=== PATIENT | female | born 1955 | race Caucasian/White ===

== ENCOUNTER 2016-08-11 20:01 | Emergency (ER) | payer OTHER ==
[~2016-08-11] VITALS: Ht 162.6 cm; Wt 82.2 kg
[~2016-08-11 20:01] MED LIST: ABIL5TAB6 PO; DIOV320T PO; LACTCAP7 PO; LEXA10TA PO; METF500 PO; REST30CA PO; SYNT50TA PO
[2016-08-11 20:10] VITALS: BP 162/86; PULSE 110; RESP 16; TEMP 100.4; O2SAT 97
[2016-08-11] MEDS ORDERED: IBUPROFEN 600 MG TAB PO ONE (20:30)
[2016-08-11] MEDS ORDERED: SODIUM CHLOR 0.9% 1000 ML INJ 1,000 ML IV SCH (20:30)
[2016-08-11] MEDS ORDERED: ACETAMINOPHEN 500 MG CPLT PO ONE (20:30)
[2016-08-11] MEDS ORDERED: VALS1TAB70 PO (20:31)
[2016-08-11] MEDS ORDERED: METF1000 PO (20:31)
[2016-08-11] MEDS ORDERED: LEVO.05 PO (20:31)
[2016-08-11] MEDS ORDERED: ROSU1TAB4 PO (20:31)
[2016-08-11] MEDS ORDERED: ESCI10TA PO (20:31)
--- NOTE | 2016-08-11 20:31 | PD ---
HPI Chief Complaint: Cold / Flu Symptoms Time Seen by Provider: 20:14 Travel History International Travel<30 days: No Contact w/Intl Traveler<30days: No Traveled to known affect area: No History of Present Illness HPI This 61-year-old female says she's been sick for a day. She's been having fever and cough. She's had been having diarrhea off and on for some time. She has a history of gastric bypass. She has had a left knee replacement cholecystectomy. She has history of sleep apnea and pneumonia. She is diabetic on metformin. She has noted some achiness all over. She has had swelling of her feet. She has been at [facility] the last few days and has been on her feet more than usual. She has a history of depression. She says that recently she has been a bit anemic. She has history of sinus sinusitis and has some pain in her face PFSH Past Medical History Arthritis: Yes Asthma: Yes Blood Disorders: No Anxiety: Yes Depression: Yes Cancer: No Cardiovascular Problems: Yes High Cholesterol: Yes Diabetes: Yes Patient Takes Glucophage: No Diminished Hearing: No Endocrine: Yes Gastrointestinal Disorders: Yes (DIARRHEA ) GERD: Yes Genitourinary: Yes Hepatitis: No Hiatal Hernia: No Hypertension: Yes Immune Disorder: No Implanted Vascular Access Dvce: Yes Musculoskeletal: Yes Neurologic: No Psychiatric: No Reproductive: No Respiratory: Yes Sleep Apnea: Yes (HX PRIOR TO BYPASS SURGERY, USE TO USE CPAP-NO MORE) Thyroid Disease: Yes Influenza Vaccination: Yes ?: Not Menopausal: Yes : 1 Para: 1 Past Surgical History Abdominal Surgery: Yes (GALL BLADDER, GASTRIC BYPASS, UMBILICAL HERNIA) Body Medical Devices: METAL WIRE BEHIND TEETH POST ORTHODONTIA Gynecologic Surgery: Yes (D&C X2) Joint Replacement: Yes (R KNEE) Pacemaker: No Social History Alcohol Use: No Tobacco Use: No Substance Use: No Allergies-Medications (Allergen,Severity, Reaction): Coded Allergies: Sulfa (Verified Allergy, Severe, 08/11/16) [place] (Unverified Adverse Reaction, Severe, 08/11/16) Codeine (Verified Adverse Reaction, Intermediate, NAUSEA/VOMITING, 08/11/16) Uncoded Allergies: RAW TOMATOES (Adverse Reaction, Severe, 02/10/14) Reported Meds & Prescriptions Reported Meds & Active Scripts Active Reported Metformin (Metformin HCl) 1,000 Mg Tab 1,000 Mg PO BIDPC With meals Escitalopram (Escitalopram Oxalate) 10 Mg Tab 10 Mg PO DAILY Rosuvastatin (Rosuvastatin Calcium) 5 Mg Tab 5 Mg PO DAILY Valsartan 320 Mg Tab 320 Mg PO DAILY Synthroid (Levothyroxine Sodium) 50 Mcg Tab 50 Mcg PO DAILY Review of Systems General / Constitutional: Positive: Fever, Chills Eyes: No: Diploplia, Blurred Vision HENT: No: Headaches, Vertigo Cardiovascular: No: Chest Pain or Discomfort, Palpitations Respiratory: Positive: Cough Gastrointestinal: Positive: Nausea, No: Vomiting Genitourinary: No: Urgency, Frequency Musculoskeletal: Positive: Myalgias Skin: No Rash Neurologic: No: Weakness, Dizziness Psychiatric: No: Suicidal Ideations Endocrine: No: Heat Intolerance, Cold Intolerance Hematologic/Lymphatic: No: Easy Bruising Physical Exam Narrative GENERAL: Well-developed female SKIN: Focused skin assessment warm/dry. HEAD: Atraumatic. Normocephalic. EYES: Pupils equal and round. No scleral icterus. No injection or drainage. ENT: No nasal bleeding or discharge. Mucous membranes pink and moist. She is tender over both maxillary sinuses NECK: Trachea midline. No JVD. CARDIOVASCULAR: Regular rate and rhythm. No murmur appreciated. RESPIRATORY: No accessory muscle use. Occasional rhonchi Breath sounds equal bilaterally. GASTROINTESTINAL: Abdomen soft, non-tender, nondistended. Hepatic and splenic margins not palpable. MUSCULOSKELETAL: No obvious deformities. No clubbing. No cyanosis. No edema. NEUROLOGICAL: Awake and alert. No obvious cranial nerve deficits. Motor grossly within normal limits. Normal speech. PSYCHIATRIC: Appropriate mood and affect; insight and judgment normal. Data Data Last Documented VS Vital Signs Date Time Temp Pulse Resp B/P Pulse Ox O2 Delivery O2 Flow Rate FiO2 08/11/16 22:06 89 18 160/68 95 Room Air 08/11/16 20:10 100.4 Orders Complete Blood Count With Diff (08/11/16 20:27) Comprehensive Metabolic Panel (08/11/16 20:27) Lactic Acid Sepsis Protocol (08/11/16 20:27) Urinalysis - C+S If Indicated (08/11/16 20:27) Influenzae A/B Antigen (08/11/16 20:27) Blood Culture (08/11/16 20:27) Chest, Pa & Lat (08/11/16 20:27) Blood Glucose (08/11/16 20:27) Iv Access Insert/Monitor (08/11/16 20:27) Oximetry (08/11/16 20:27) Ibuprofen (Motrin) (08/11/16 20:30) Acetaminophen (Tylenol) (08/11/16 20:30) Sodium Chlor 0.9% 1000 Ml Inj (Ns 1000 M (08/11/16 20:30) B-Type Natriuretic Peptide (08/11/16 20:31) Labs Laboratory Tests Test 08/11/16 08/11/16 21:00 21:05 White Blood Count 9.5 TH/MM3 Red Blood Count 3.66 MIL/MM3 Hemoglobin 9.4 GM/DL Hematocrit 28.9 % Mean Corpuscular Volume 79.1 FL Mean Corpuscular Hemoglobin 25.8 PG Mean Corpuscular Hemoglobin 32.7 % Concent Red Cell Distribution Width 16.3 % Platelet Count 263 TH/MM3 Mean Platelet Volume 8.3 FL Neutrophils (%) (Auto) 79.7 % Lymphocytes (%) (Auto) 8.5 % Monocytes (%) (Auto) 9.6 % Eosinophils (%) (Auto) 0.7 % Basophils (%) (Auto) 1.5 % Neutrophils # (Auto) 7.6 TH/MM3 Lymphocytes # (Auto) 0.8 TH/MM3 Monocytes # (Auto) 0.9 TH/MM3 Eosinophils # (Auto) 0.1 TH/MM3 Basophils # (Auto) 0.1 TH/MM3 CBC Comment DIFF FINAL Differential Comment Sodium Level 138 MEQ/L Potassium Level 3.5 MEQ/L Chloride Level 102 MEQ/L Carbon Dioxide Level 25.3 MEQ/L Anion Gap 11 MEQ/L Blood Urea Nitrogen 10 MG/DL Creatinine 0.56 MG/DL Estimat Glomerular Filtration 109 ML/MIN Rate Random Glucose 165 MG/DL Calcium Level 8.5 MG/DL Total Bilirubin 0.4 MG/DL Aspartate Amino Transf 30 U/L (AST/SGOT) Alanine Aminotransferase 35 U/L (ALT/SGPT) Alkaline Phosphatase 78 U/L B-Type Natriuretic Peptide 165 PG/ML Total Protein 6.9 GM/DL Albumin 3.7 GM/DL Lactic Acid Level 1.1 mmol/L [facility] Medical Decision Making Medical Screen Exam Complete: Yes Emergency Medical Condition: Yes Medical Record Reviewed: Yes Differential Diagnosis Differential includes pneumonia, sinusitis, pharyngitis, influenza Narrative Course Test for flu is negative. Chest x-ray negative for pneumonia. She will be treated for sinusitis Diagnosis Primary Impression: Sinusitis Qualified Code: J01.00 - Acute maxillary sinusitis, recurrence not specified Scripts Amoxicillin 500 Mg Qot159 Mg PO TID #30 TAB Ref 0 Prov:Andrew Neal MD 08/11/16 Disposition: 01 DISCHARGE HOME Condition: Stable Andrew Neal MD August 11, 2016 20:31
--- NOTE | 2016-08-11 20:57 | RADHPO ---
EXAM DATE/TIME: 08/11/2016 20:43 [facility] COMPARISON: No previous studies available for comparison. INDICATIONS : Cough. MEDICAL HISTORY : None. SURGICAL HISTORY : None. ENCOUNTER: Initial ACUITY: 2 days PAIN SCORE: 4/10 LOCATION: Bilateral chest FINDINGS: PA and lateral views of the chest demonstrate the lungs to be symmetrically aerated without evidence of mass, infiltrate or effusion. The cardiomediastinal contours are unremarkable. Osseous structure s are intact. CONCLUSION: No evidence of acute cardiopulmonary disease. Eliu Edwards MD on August 11, 2016 at 20:55 Board Certified Radiologist. This report was verified electronically.
[2016-08-11 21:00] VITALS: BP 170/72; PULSE 98; RESP 18; O2SAT 95; O2SAT 96
[2016-08-11 21:23] LABS: AUTOMATED NEUTROPHIL # 7.6 TH/MM3 (1.8-7.7); BASOPHIL # 0.1 TH/MM3 (0-0.2); BASOPHIL % 1.5 % (0.0-2.0); EOSINOPHIL # 0.1 TH/MM3 (0-0.4); EOSINOPHIL % 0.7 % (0.0-4.0); HEMATOCRIT 28.9 % (35.0-46.0); LYMPH % 8.5 % (9.0-44.0); LYMPHOCYTE # 0.8 TH/MM3 (1.0-4.8); MEAN CELL VOLUME 79.1 FL (80.0-100.0); MEAN CORPUSCULAR HEMOGLOBIN 25.8 PG (27.0-34.0); MEAN CORPUSCULAR HGB CONC 32.7 % (32.0-36.0); MONO % 9.6 % (0.0-8.0); NEUT % 79.7 % (16.0-70.0); PLATELET COUNT 263 TH/MM3 (150-450); RED BLOOD COUNT 3.66 MIL/MM3 (4.00-5.30); RED CELL DISTRIBUTION WIDTH 16.3 % (11.6-17.2); WHITE BLOOD COUNT 9.5 TH/MM3 (4.0-11.0)
[2016-08-11 21:26] LABS: HEMO FLAGS DIFF FINAL
[2016-08-11 21:34] LABS: CHLORIDE 102 MEQ/L (98-107); POTASSIUM 3.5 MEQ/L (3.5-5.1); SODIUM (NA) 138 MEQ/L (136-145)
[2016-08-11 21:38] LABS: ANION GAP 11 MEQ/L (5-15); BICARBONATE 25.3 MEQ/L (21.0-32.0); BLOOD UREA NITROGEN 10 MG/DL (7-18)
[2016-08-11 21:41] LABS: ALT (GPT) 35 U/L (10-53); AST (GOT) 30 U/L (15-37); GLOMERULAR FILTRATION RATE 109 ML/MIN (>89)
[2016-08-11 21:42] LABS: TOTAL BILIRUBIN ADULT 0.4 MG/DL (0.2-1.0)
[2016-08-11 21:44] LABS: ALKALINE PHOSPHATASE 78 U/L (45-117)
[2016-08-11 22:06] VITALS: BP 160/68; PULSE 89; RESP 18; O2SAT 95
[2016-08-11] MEDS ORDERED: AMOX500T PO (22:37)
[2016-08-11 22:45] VITALS: RESP 18
[2016-08-11] MEDS ORDERED: AMOXICILLIN (TRIHYDRATE) 500 MG CAP PO ONE (22:45)
== END 2016-08-11 23:02 | disposition home or self-care (01) ==
LOC: PHED 20:01
DX: J32.9 Chronic sinusitis, unspecified (principal); R05 Cough; G47.30 Sleep apnea, unspecified; E11.9 Type 2 diabetes mellitus without complications; J45.909 Unspecified asthma, uncomplicated; E78.00 Pure hypercholesterolemia, unspecified; I10 Essential (primary) hypertension; K21.9 Gastro-esophageal reflux disease without esophagitis; Z79.84 Long term (current) use of oral hypoglycemic drugs
CPT/HCPCS: 71020; 80053; 83605; 83880; 85025; 87040; 87804; 96360; 99284; J7030

== ENCOUNTER → 2017-02-23 | Outpatient (CLI) | payer OTHER ==
[~2017-02-23] MED LIST changes: -ABIL5TAB6 PO; +AMOX500T PO; -DIOV320T PO; +ECASA81 PO; +ESCI10TA PO; +HYDR-3580 PO; -LACTCAP7 PO; +LEVO.05 PO; -LEXA10TA PO; +METF1000 PO; -METF500 PO; -REST30CA PO; +ROSU1TAB4 PO; -SYNT50TA PO; +VALS1TAB70 PO
[2017-02-23 10:19] LABS: BLOOD, URINE TRACE (NEG); GLUCOSE,URINE NEG (NEG); KETONE, URINE NEG (NEG); NITRITE,URINE NEG (NEG); URINE COLOR LIGHT-YELLOW (YELLW/STRAW)
[2017-02-23 10:31] LABS: WBC, URINE 0-2 /hpf (0-5)
[2017-02-23 10:32] LABS: BACTERIA, URINE RARE /hpf; COMMENT (UR) CATH-CULTURE IND; CULTURE IF INDICATED CATH CULTURE IND
--- NOTE | 2017-02-23 16:25 | EKG ---
Date Performed: 02/23/2017 Time Performed: 08:32:10 PTAGE: 61 years EKG: Sinus rhythm NORMAL ECG Since PREVIOUS TRACING , no significant change noted PREVIOUS TRACING 02/09/2014 22.19 DOCTOR: Amilcar Hankins Interpretating Date/Time 02/23/2017 16:23:49
== END ==
LOC: CPRE 08:08
PROVIDERS: ATTEND Orthopaedic Surgery
DX: Z01.812 Encounter for preprocedural laboratory examination (principal); Z01.810 Encounter for preprocedural cardiovascular examination; M17.11 Unilateral primary osteoarthritis, right knee; M79.609 Pain in unspecified limb; I10 Essential (primary) hypertension; R82.99 Other abnormal findings in urine
CPT/HCPCS: 81001; 87086; 93005

== ENCOUNTER 2017-03-05 05:05 | Inpatient (IN) | payer OTHER ==
[~2017-03-05] VITALS: Ht 162.6 cm; Wt 77.9 kg
[~2017-03-05 05:05] MED LIST changes: -AMOX500T PO; -ECASA81 PO; -HYDR-3580 PO
[2017-03-05] MEDS ORDERED: EXPAREL PERI-ARTICULAR INJECTION (TOTAL VOL. 100 ML) P-ARTICULR SCH ×2 (05:45)
[2017-03-05] MEDS ORDERED: ceFAZolin 2 GM PREMIX 50 ML IV SCH (05:45)
[2017-03-05] MEDS ORDERED: CHLORHEXIDINE GLUCONATE 4% SOLN 120 ML BTL TOPICAL SCH (05:45)
[2017-03-05] MEDS ORDERED: SODIUM CHLORID 0.9% 500 ML IV PRN (05:45)
[2017-03-05] MEDS ORDERED: TRANEXAMIC ACID INJ 780 MG in SODIUM CHLORIDE 0.9% INJ 100 ML IV SCH ×4 (05:45)
[2017-03-05] MEDS ORDERED: CHLORHEXIDINE GLUCONATE 2 % 1 PACK (2 CLOTHS) TOPICAL PRN (05:45)
[2017-03-05] MEDS ORDERED: LACTATED RINGER'S 1000 ML IV PRN (05:45)
[2017-03-05] MEDS ORDERED: INSULIN HUMAN REGULAR 1,000 UNITS/10 ML VIAL SQ PRN (05:45)
[2017-03-05] MEDS ORDERED: POVIDONE IODINE 5% (ANTISEPSIS KIT) 4 APPLICATIONS EACH NARE PRN (05:45)
[2017-03-05] MEDS ORDERED: METOPROLOL TARTRATE 25 MG TAB PO PRN (05:45)
[2017-03-05] MEDS ORDERED: GENTAMICIN SULFATE 80 MG/2 ML VIAL ONE (06:01)
[2017-03-05] MEDS ORDERED: ZOLPIDEM TARTRATE 5 MG TAB PO PRN (06:45)
[2017-03-05] MEDS ORDERED: SODIUM CHLORIDE 0.9% FLUSH 5 ML FLUSH IVF PRN (06:45)
[2017-03-05] MEDS ORDERED: ONDANSETRON HCL 4 MG/2 ML VIAL IVP PRN (06:45)
[2017-03-05] MEDS ORDERED: MAGNESIUM HYDROXIDE SUSP 30 ML CUP PO PRN (06:45)
[2017-03-05] MEDS ORDERED: ACETAMINOPHEN/HYDROcodone 325 MG/7.5 MG TAB PO PRN (06:45)
[2017-03-05] MEDS ORDERED: MORPHINE SULFATE 4 MG/ML INJ IV PUSH PRN (06:45)
--- NOTE | 2017-03-05 06:47 | HHI.FF ---
Face to Face Verification Diagnosis: (1) Status post total right knee replacement Physical Therapy Gait training Knee: Total knee, Protocol: Right, Gait training, Full weight bearing Right LE Weight Bearing: WB as tolerated Right LE Range of Motion: Active ROM (AROM, AAROM, PROM. ROM goal is 0 to 135 degrees at least. ROM in the OR was 0 to 145 degrees.) Nursing Nursing: Dressing changes Dressing Changes: Daily dressing change (Dressing changes start at postop day 7.), Coverderm/Primapore Additional Instructions Remove steristrips on postop day 14. I have seen patient Natalie Baez on 03/05/17. My clinical findings support the need for the requested home health care services because: Ltd mobility - disease progression Limited ability to care for self High risk of falls I certify that my clinical findings support that this patient is homebound because: Post-op weakness Unsteady gait/balance Unsafe to leave home unassisted Adrianne Restrepo MD (Charles) Mar 05, 2017 06:47
[2017-03-05] MEDS ORDERED: ECASA81 PO (06:48)
[2017-03-05] MEDS ORDERED: ROPIVACAINE 0.5% PF INJ 30 ML VIAL ONE (06:56)
[2017-03-05] MEDS ORDERED: DEXAMETHASONE SOD PHOS 4 MG/ML VIAL ONE (06:56)
[2017-03-05] MEDS ORDERED: PROPOFOL 500 MG/50 ML INJ 50 ML ONE (07:47)
[2017-03-05] MEDS: LACTATED RINGER'S 1000 ML INJ 1,000 ML IV SCH ×2 (08:30→19:33)
[2017-03-05] MEDS ORDERED: Post-op Orders (for Pharmacy) MISC XX ONE (09:00)
[2017-03-05] MEDS: metFORMIN HCL 500 MG TAB PO SCH ×2 (09:00→17:58)
--- NOTE | 2017-03-05 09:13 | HHI.PR ---
Immediate Post Op Note Procedure Date: Mar 05, 2017 Pre Op Diagnosis: (1) Primary osteoarthritis of right knee Post Op Diagnosis: (1) Primary osteoarthritis of right knee Surgeon: Saurabh Restrepo MD Senior Strategy Manager(s): JENNIFER Asif Procedure: Right total knee arthroplasty with [place] Triathlon prosthesis, uncemented Findings: OA knee Complications: 0 Specimen(s) removed: 0 Estimated blood loss: 250 ml Anesthesia: Regional Block (adductor canal), Spinal, Local (Exparel) Drains: Hemovac (2) IVF Tourniquet time (min at mmHg) 0 Patient to: PACU Patient Condition: Good Implant/Devices: SEE IMPLANT LOG (if applicable) Date/Time of Procedure: SEE SURGICAL CARE RECORD Adrianne Restrepo MD (Charles) Mar 05, 2017 09:13
--- NOTE | 2017-03-05 09:57 | MP ---
cc: Foreign GOMEZ. DATE OF SURGERY 03/05/2017 PREOPERATIVE DIAGNOSIS Primary osteoarthritis right knee POSTOPERATIVE DIAGNOSIS Primary osteoarthritis right knee OPERATION PERFORMED Right total knee arthroplasty with [place] Triathlon prosthesis (uncemented). SURGEON Karla Gomez MD RATING EXAMINER JENNIFER Asif ANESTHESIA Spinal with supplemental adductor canal block regional and local with Exparel INDICATIONS AND FINDINGS This 61-year-old woman has had longstanding pain in her right knee secondary to osteoarthritis which has been progressively worsening. Her ambulation tolerance is significantly limited. She has pain on motion with crepitation on motion and pain with activities of daily living. She has not responded to conservative measures as detailed in the history and physical examination. Physical findings showed palpable osteophytes with genu varum, medial laxity and crepitation on motion with an effusion. The radiographic findings shows severe osteoarthritis with loss of articular cartilage to [id number], osteophytes that were tricompartmental in nature. Operative findings were consistent with radiographic findings with there being loss of articular cartilage to [id number] in the medial compartment, similar loss, but to a lesser extent in the patellofemoral compartment and large areas of delaminating articular cartilage in the lateral femoral condyle. The prosthesis used was a [place] Triathlon prosthesis. The femoral component was a porous coated prosthesis size 4 cruciate-retaining. The tibial components is a Tritanium baseplate size 4 with a 9 mm cruciate-retaining spacer of X3 polyethylene. The patella was a Tritanium backed asymmetric patella size 35 mm. PROCEDURE The patient was brought to the operating room and a spinal anesthetic was administered followed by an adductor canal block. She was placed in a supine position on the operating room table with a small bolster under the right hip. A pneumatic tourniquet was applied to the right thigh. The limb was then prepped with alcohol, Hibiclens and Chloraprep and draped in the usual manner with the knee draped free. An appropriate time-out procedure was carried out. The patient did receive prophylactic antibiotics in the form of Ancef according to protocol as well as tranexamic acid to help with intraoperative bleeding. Local anesthetic was administered in the incision site. The incision was then made from about two fingerbreadths above the superior medial pole of the patella down to the tibial tubercle on the medial side. The incision was deepened through the subcutaneous tissues to the retinacular structures which were exposed medially and laterally. A medial retinacular incision was then made from the superior medial pole of the patella down to the tibial tubercle and was in the quadriceps tendon splitting it longitudinally in the medial one-third. The patella was reflected. The infrapatellar fat pad was debulked. Throughout the procedure, hemostasis was achieved with electrocautery. The posterior surface of the patella was excised with the oscillating saw taking care to prevent injury to ligamentous and tendinous structures. A patella protector was applied to the posterior surface. The patella was flipped into the lateral gutter. Fenestrations were made in the distal end of the femur and proximal end of the tibia with the drill. The distal femoral cutting guide was then positioned in place for a 5 degrees 8-mm cut. The cutting block was stabilized with pins. The jig was removed. The distal femoral cut was completed with the oscillating saw. The sizing guide was then positioned in place using white sides line in the epicondylar axis. The size was determined to be a size 4. The four in one cutting block was positioned in place and stabilized with pins. The anterior and posterior cuts were made followed by the posterior and anterior chamfer cuts. Osteophytes were trimmed. The fenestration in the femur was plugged with a bone plug. The proximal tibial cutting guide and jig were then assembled and positioned appropriately for rotation. This was stabilized with a pin. The depth of cut was verified with the stylus off the high side. The cutting block was stabilized with pins. The jig was removed. The depth of cut was verified with the spacer block. The secondary pin was placed. The proximal tibial cut was then completed with the oscillating saw taking care to prevent injury to neurovascular and ligamentous structures. The size of the tibia was determined to be a size 4. A bone plug was then placed into the distal end of the proximal tibia. The local anesthesia was administered around the cut surfaces and posterior capsule. Following this, the trial prosthesis was inserted for the size as noted above. The patella drill guide was positioned prior to placing the patella with drill holes made. When the patella trial was positioned in place, the knee was taken through a range of motion. Range of motion was easily 0 degrees extension to 145 degrees of flexion with excellent stability throughout the entire range. The femoral drill holes were made through the trial prosthesis. The femoral and patella trials were removed. The tibial spacer trials were removed. A bone plug was placed into the proximal tibia. The tibia was punched with the proximal tibial punch. This was then removed. The baseplate trial was removed. The tibial drill guide was positioned in place. Drill holes were made. The cut ends of bone were then cleaned with pulse lavage. The tibial baseplate was impacted into place and seated appropriately. The spacer was inserted. The femoral component was impacted into place and seated appropriately. The patella prosthesis was seated in place appropriately and held with a patella vice. A small amount of bleeding was identified coming out of the fenestration in the distal femur. This was plugged with bone wax. The remainder of the Exparel was injected throughout the knee according to protocol. Drains were brought out the superolateral aspect of the suprapatellar pouch. Wound closure then commenced using 0 Vicryl interrupted [id number] sutures for retinacular and capsular structures and fascial structures, 2-0 Vicryl interrupted simple sutures with buried knots for the subcutaneous tissues and 4-0 Monocryl continuous subcuticular closure for the skin. The wound was dressed with Steri-Strips followed by a dry dressing (silver impregnated), sterile Sof-Rol and cooling pad with Payam bandage from the base the toes to midthigh. The patient was transferred from the operating room to the recovery room in satisfactory condition having tolerated the procedure well. Counts were correct. Specimens, none. Estimated blood loss 250 mL. MD MINOO Woodall/RAYNA /9:22 AM /9:39 AM MICHAEL
[2017-03-05] MEDS ORDERED: TRANEXAMIC ACID INJ 779 MG in SODIUM CHLORIDE 0.9% INJ 100 ML IV SCH (10:00)
[2017-03-05] MEDS: KETOROLAC TROMETHAMINE 30 MG/ML (IVP) VIAL IVP SCH ×3 (10:00→19:32)
[2017-03-05] MEDS ORDERED: DO NOT ADM ANY ANTICOAGULANT DRUGS PRN (10:15)
--- NOTE | 2017-03-05 11:01 | RADRPT ---
EXAM DATE/TIME: 03/05/2017 10:06 [facility] COMPARISON: No previous studies available for comparison. INDICATIONS : Post op total right knee replacement. MEDICAL HISTORY : None. SURGICAL HISTORY : None. ENCOUNTER: Initial ACUITY: 1 day PAIN SCORE: 3/10 LOCATION: Right Knee FINDINGS: AP and lateral views of the knee following arthroplasty reveals a prosthesis in anatomic alignment. F racture is not appreciated. Surgical drain is evident CONCLUSION: Status post total knee arthroplasty. Noe Hyatt MD FACR Board Certified Radiologist. This report was verified electronically.
[2017-03-05] MEDS ORDERED: PHENYLEPH/NS 1000 MCG/10 ML SYR IV ONE (12:00)
[2017-03-05] MEDS ORDERED: PROPOFOL 200 MG/20 ML AMP IV ONE (12:00)
[2017-03-05] MEDS ORDERED: DEXAMETHASONE SOD PHOS 4 MG/ML VIAL IV ONE (12:00)
[2017-03-05 12:45] VITALS: BP 133/63; PULSE 85; RESP 16; TEMP 98.1; O2SAT 94
--- NOTE | 2017-03-05 12:50 | PD.CONS ---
HPI Service [facility] Hospitalists Consult Requested By Dr. Restrepo Reason for Consult medical management Primary Care Physician Michael Angela MD Diagnoses: History of Present Illness This is a 61 year old female patient with a past medical history which includes hyperlipidemia, HTN, DM type 2, iron deficiency anemia s/p gastric bypass followed by Dr. Ritter and hypothyroidism. Patient underwent right total hip arthroplasty 03/05/[address] Restrepo. We have been consulted for medical management post operatively. Patient tearful at time of evaluation. She reports he in a hospital, that is why she is emotional. Patient reports pot-op pain tolerable. Patient denies N/V, SOB, chest, fevers or chills. Review of Systems Constitutional: DENIES: Fatigue, Fever, Chills Eyes: DENIES: Blurred vision, Diplopia, Vision loss Respiratory: DENIES: Cough, Sputum production, Shortness of breath Cardiovascular: DENIES: Chest pain, Palpitations, Dyspnea on Exertion Gastrointestinal: DENIES: Abdominal pain, Constipation, Diarrhea Neurologic: DENIES: Headache, Localized weakness, Seizures, Speech Problems Psychiatric: COMPLAINS OF: Anxiety, DENIES: Confusion, Depression Past Family Social History Past Medical History hyperlipidemia, HTN, DM type 2, iron deficiency anemia s/p gastric bypass followed by Dr. Ritter and hypothyroidism Past Surgical History Gastric bypass, EGD, laparoscopic ventral hernia repair, cholecystectomy and left knee surgery 2008 Reported Medications Metformin (Metformin HCl) 1,000 Mg Tab 1,000 Mg PO BIDPC With meals Escitalopram (Escitalopram Oxalate) 10 Mg Tab 10 Mg PO DAILY Rosuvastatin (Rosuvastatin Calcium) 5 Mg Tab 5 Mg PO DAILY Valsartan 320 Mg Tab 320 Mg PO DAILY Synthroid (Levothyroxine Sodium) 50 Mcg Tab 50 Mcg PO DAILY Allergies: Coded Allergies: Sulfa (Sulfonamide Antibiotics) (Verified Allergy, Severe, 02/23/17) codeine (Verified Adverse Reaction, Severe, NAUSEA/VOMITING, 02/23/17) strawberry (Verified Adverse Reaction, Severe, Hives, 02/23/17) Uncoded Allergies: RAW TOMATOES (Adverse Reaction, Severe, Hives, 02/23/17) Active Ordered Medications Current Medications Medications (Trade) Dose Ordered Sig/Merly Route Start Time Stop Time Status Last Admin Lactated Ringer's 1,000 ml @ 30 mls/hr Q24H PRN IV 03/05/17 05:45 03/08/17 05:44 03/05/17 05:55 Sodium Chloride 500 ml @ 30 mls/hr [id number] PRN IV 03/05/17 05:45 03/08/17 05:44 (Lopressor) 25 mg FOOD SERVICE STEWARD PRN PO 03/05/17 05:45 03/08/17 05:44 (Betadine 5% Antisepsis Kit) 1 applic FOOD SERVICE STEWARD PRN EACH NARE 03/05/17 05:45 03/08/17 05:44 03/05/17 06:11 (Chlorhexidine 2% Cloth) 3 pack FO[employer] SERVICE STEWARD PRN TOPICAL 03/05/17 05:45 03/08/17 05:44 03/05/17 05:30 (NovoLIN R INJ) See Protocol Table ... FOOD SERVICE STEWARD PRN SQ 03/05/17 05:45 03/08/17 05:44 (Hibiclens 4% Top Soln) 1 applic ONCE TOPICAL 03/05/17 05:45 03/08/17 05:44 03/05/17 05:50 Cefazolin Sodium/ Dextrose 50 ml @ 100 mls/hr FOOD SERVICE STEWARD IV 03/05/17 05:45 03/08/17 05:44 03/05/17 07:10 Tranexamic Acid 780 mg/Sodium Chloride 107.8 ml @ 200 mls/hr ONCE IV 03/05/17 05:45 03/05/17 16:00 03/05/17 06:59 Bupivacaine Liposome 20 ml/ Sodium Chloride 100 ml @ 200 mls/hr ONCE P-ARTICULR 03/05/17 05:45 03/05/17 16:00 03/05/17 07:31 Lactated Ringer's 1,000 ml @ 80 mls/hr [id number] IV 03/05/17 08:30 03/05/17 08:30 (NS Flush) 2 ml UNSCH PRN IVF 03/05/17 06:45 (NS Flush) 2 ml BID IVF 03/05/17 09:00 Cefazolin Sodium 1000 mg/Sodium Chloride 100 ml @ 200 mls/hr Q6H IV 03/05/17 13:00 03/06/17 01:29 (Morphine Inj) 4 mg Q3H PRN IV PUSH 03/05/17 06:45 ([place] 7.5-325 Mg) 1 tab Q4H PRN PO 03/05/17 06:45 ([place] 7.5-325 Mg) 2 tab Q4H PRN PO 03/05/17 06:45 (Toradol Inj) 15 mg Q6H IVP 03/05/17 09:00 03/07/17 03:01 03/05/17 10:00 Tranexamic Acid 779 mg/Sodium Chloride 107.79 ml @ 200 mls/ hr UNSCH X1 IV 03/05/17 10:00 03/05/17 16:00 03/05/17 10:02 (Zofran Inj) 4 mg Q6H PRN IVP 03/05/17 06:45 (Colace) 100 mg BID PO 03/06/17 21:00 (Ambien) 5 mg HS PRN PO 03/05/17 06:45 (Milk Of Magnesia Liq) 30 ml DAILY PRN PO 03/05/17 06:45 (Ecotrin Ec) 81 mg BID PO 03/06/17 09:00 (Lexapro) 10 mg DAILY PO 03/05/17 09:00 (Synthroid) 50 mcg DAILY@0600 PO 03/06/17 06:00 (Glucophage) 1,000 mg BIDPC PO 03/05/17 09:00 (Diovan) 320 mg DAILY PO 03/05/17 09:00 (Lipitor) 10 mg DAILY PO 03/05/17 09:00 Miscellaneous Information ALL NURSING DEPARTME... UNSCH PRN .XX 03/05/17 10:15 03/06/17 10:14 Family History Father secondary to Leukemia Mother had hx of HTN and hyperlipemia Social History Lives alone denies ETOH use, tobacco use or illicit drug use Physical Exam Vital Signs Vital Signs Date Time Temp Pulse Resp B/P (MAP) Pulse Ox O2 Delivery O2 Flow Rate FiO2 03/05/17 11:30 97.5 81 20 144/70 (94) 98 Nasal Cannula 2 03/05/17 10:30 70 20 144/70 (94) 99 Nasal Cannula 2 03/05/17 10:15 69 20 148/66 (93) 100 Nasal Cannula 2 03/05/17 10:00 70 20 174/74 (107) 100 Nasal Cannula 2 03/05/17 09:45 74 20 136/61 (86) 100 Nasal Cannula 2 03/05/17 09:29 97.4 71 20 133/92 (106) 100 Nasal Cannula 2 03/05/17 06:02 98.2 83 16 154/77 (102) 97 Physical Exam GENERAL: This is a well-nourished, well-developed patient, tearful but in no apparent distress. SKIN: Post-op dressing dry and intact HEAD: Atraumatic. Normocephalic. No temporal or scalp tenderness. EYES: Extraocular motions intact. No scleral icterus. No injection or drainage. CARDIOVASCULAR: Regular rate and rhythm RESPIRATORY: Clear to auscultation. Breath sounds equal bilaterally. GASTROINTESTINAL: Abdomen soft, non-tender, nondistended. MUSCULOSKELETAL: Extremities without clubbing, cyanosis, or edema. No joint tenderness, effusion, or edema noted. No calf tenderness. Negative Homans sign bilaterally. with the exception of RLE post operative in PROM machine with post- op dressing dry and intact NEUROLOGICAL: Awake and alert. Motor and sensory grossly within normal limits, with the exception of RLE post operative. Normal speech. Assessment and Plan Problem List: (1) Primary osteoarthritis of right knee ICD Codes: M17.11 - Unilateral primary osteoarthritis, right knee Plan: Osteoarthritis S/P right total knee with Dr. Restrepo 03/05/17 pain medication as needed PT and PROM per orhto HTN continue home medication monitor BP trend Hyperlipidemia continue home medications DM type 2 Metformin 100 mg PO BID continued accu checks ACHS with low dose SSI while in hospital hypothyroidism continue home Synthroid DVT prophylaxis with teds and SCDs per orthopedic surgery aspirin at time of DC (2) HTN (hypertension) ICD Codes: I10 - HTN (hypertension) Status: Acute (3) Hyperlipidemia ICD Codes: E78.5 - Hyperlipidemia Status: Acute (4) Diabetes ICD Codes: E11.9 - Diabetes Status: Acute (5) Hypothyroid ICD Codes: E03.9 - Hypothyroid Status: Acute Assessment and Plan Patient examined. Assessment and plan formulated with Jessica Knight PA-C. I agree with the above. s/p right tka. will monitor her dm and htn during the admission. plan for snf Jessica Knight Mar 05, 2017 12:50 Amilcar Baer MD Mar 05, 2017 20:12
[2017-03-05] MEDS ORDERED: GLUCAGON 1 MG/ML VIAL OTHER PRN (13:00)
[2017-03-05] MEDS ORDERED: DEXTROSE 50% IN WATER 50 ML VIAL(D50) IV PUSH PRN (13:00)
[2017-03-05] MEDS: ESCITALOPRAM OXALATE 10 MG TAB PO SCH (15:07)
[2017-03-05] MEDS: ATORVASTATIN 10 MG TAB PO SCH (15:07)
[2017-03-05] MEDS: VALSARTAN 160 MG TAB PO SCH (15:07)
[2017-03-05 16:00] VITALS: BP 134/64; PULSE 89; RESP 16; TEMP 98.4; O2SAT 94
[2017-03-05 16:02] VITALS: O2SAT 96
[2017-03-05] MEDS: INSULIN ASPART SUPPLEMENTAL SCALE SQ SCH ×2 (18:08→21:22)
[2017-03-05 19:33] VITALS: BP 169/77; PULSE 86; RESP 17; TEMP 96.7; O2SAT 95
[2017-03-05] MEDS: SODIUM CHLORIDE 0.9% FLUSH 5 ML FLUSH IVF SCH (19:34)
[2017-03-05 23:20] VITALS: BP 135/63; PULSE 89; RESP 17; TEMP 96.7; O2SAT 93
[2017-03-06] VITALS (7 sets, daily range): BP systolic 99–135; BP diastolic 61–79; PULSE 75–89; RESP 16–18; TEMP 96.8–98.8; O2SAT 95–99
[2017-03-06] MEDS: ACETAMINOPHEN/HYDROcodone 325 MG/7.5 MG TAB PO PRN ×4 (03:54→21:33)
[2017-03-06] MEDS: KETOROLAC TROMETHAMINE 30 MG/ML (IVP) VIAL IVP SCH ×4 (03:54→20:17)
[2017-03-06] MEDS: LEVOTHYROXINE SODIUM 50 MCG TAB PO SCH (05:54)
--- NOTE | 2017-03-06 06:13 | PD.ORT.PN ---
Subjective Post Op Day #: 1 Subjective Remarks She is doing well. She is able to transfer and walk to the bathroom. Range of Motion -10 to 100 degrees. Distance Walked 100 feet. Objective Vitals Vital Signs Date Time Temp Pulse Resp B/P (MAP) Pulse Ox O2 Delivery O2 Flow Rate FiO2 03/06/17 03:42 96.8 86 17 133/63 (86) 95 03/05/17 23:20 96.7 89 17 135/63 (87) 93 03/05/17 19:33 96.7 86 17 169/77 (107) 95 03/05/17 16:02 96 Nasal Cannula 2.00 03/05/17 16:00 98.4 89 16 134/64 (87) 94 03/05/17 12:59 Nasal Cannula 2.00 03/05/17 12:45 98.1 85 16 133/63 (86) 94 03/05/17 11:30 97.5 81 20 144/70 (94) 98 Nasal Cannula 2 03/05/17 10:30 70 20 144/70 (94) 99 Nasal Cannula 2 03/05/17 10:15 69 20 148/66 (93) 100 Nasal Cannula 2 03/05/17 10:00 70 20 174/74 (107) 100 Nasal Cannula 2 03/05/17 09:45 74 20 136/61 (86) 100 Nasal Cannula 2 03/05/17 09:29 97.4 71 20 133/92 (106) 100 Nasal Cannula 2 I/O 03/05/17 03/05/17 03/05/17 03/06/17 03/06/17 03/06/17 07:00 15:00 23:00 07:00 15:00 23:00 Intake Total 1250 ml 1183 ml 460 ml Output Total 3250 ml 230 ml 100 ml Balance -2000 ml 953 ml 360 ml Intake Oral 550 ml 480 ml 360 ml IV Total 700 ml 703 ml 100 ml Output Drainage Total 230 ml 100 ml Estimated Blood Loss 250 ml Other 3000 ml # Voids 2 2 2 # Bowel Movements 0 0 0 Imaging Last 24 hours Impressions Knee X-Ray 03/05/17 0636 Signed Impressions: Service Date/Time: Sunday, March 05, 2017 10:06 - CONCLUSION: Status post total knee arthroplasty. Noe Hyatt MD Objective Remarks She is resting comfortably, supine in bed in the [facility]. The dressing is dry and intact. The neurovascular status is intact. Assessment & Plan Ortho Post Op Day #: 1 Problem List: (1) Status post total right knee replacement ICD Codes: Z96.651 - Presence of right artificial knee joint Plan: Continue postbox care and PT. Assessment and Plan Condition: Good. Orthopaedically stable. DVT prophylaxis: TEDs, sequentials, ASA. Discharge plans: Home with HHC, possibly SNF for rehab (lives alone on one floor ). Has appointment. Rx: Norco7.5/325 Adrianne Restrepo MD ([place]) Mar 06, 2017 06:13
[2017-03-06 06:15] LABS: HEMATOCRIT 30.2 % (35.0-46.0); REVIEW FLAG FINAL
[2017-03-06] MEDS ORDERED: HYDR-3580 PO (06:30)
[2017-03-06] MEDS: SODIUM CHLORIDE 0.9% FLUSH 5 ML FLUSH IVF SCH ×2 (09:00→20:17)
[2017-03-06] MEDS: LACTATED RINGER'S 1000 ML INJ 1,000 ML IV SCH ×2 (09:30→21:45)
[2017-03-06] MEDS: ESCITALOPRAM OXALATE 10 MG TAB PO SCH (09:48)
[2017-03-06] MEDS: ATORVASTATIN 10 MG TAB PO SCH (09:49)
[2017-03-06] MEDS: metFORMIN HCL 500 MG TAB PO SCH ×2 (09:49→17:25)
[2017-03-06] MEDS: ASPIRIN EC 81 MG TABEC PO SCH ×2 (09:49→20:16)
[2017-03-06] MEDS: VALSARTAN 160 MG TAB PO SCH (09:49)
[2017-03-06] MEDS ORDERED: INFLUENZA VIRUS VACCINE (QUADRIVALENT) 0.5 ML SYR IM ONE (10:00)
[2017-03-06] MEDS: INSULIN ASPART SUPPLEMENTAL SCALE SQ SCH ×3 (13:09→21:33)
[2017-03-06] MEDS: DOCUSATE SODIUM 100 MG CAP PO SCH (20:17)
[2017-03-07 00:08] VITALS: BP 144/81; PULSE 90; RESP 18; TEMP 97.4; O2SAT 95
[2017-03-07] MEDS: KETOROLAC TROMETHAMINE 30 MG/ML (IVP) VIAL IVP SCH (01:55)
[2017-03-07 03:17] VITALS: BP 156/76; PULSE 89; RESP 17; TEMP 98.5; O2SAT 98
[2017-03-07] MEDS: ACETAMINOPHEN/HYDROcodone 325 MG/7.5 MG TAB PO PRN ×3 (04:56→12:55)
[2017-03-07] MEDS: LEVOTHYROXINE SODIUM 50 MCG TAB PO SCH (04:56)
[2017-03-07 06:37] LABS: HEMATOCRIT 28.6 % (35.0-46.0); REVIEW FLAG FINAL
--- NOTE | 2017-03-07 07:42 | PD.ORT.PN ---
Subjective Post Op Day #: 1 Subjective Remarks She is doing well. She did well with PT. She is undecided regarding HHC versus SNF ([facility]). Range of Motion 0 to 95 degrees. Distance Walked 200 feet with PT. Objective Vitals Vital Signs Date Time Temp Pulse Resp B/P (MAP) Pulse Ox O2 Delivery O2 Flow Rate FiO2 03/07/17 03:17 98.5 89 17 156/76 (102) 98 03/07/17 00:08 97.4 90 18 144/81 (102) 95 03/06/17 21:08 96 03/06/17 20:59 98.4 75 18 128/74 (92) 98 03/06/17 16:00 98.8 89 16 128/69 (88) 99 03/06/17 12:00 98.3 83 16 99/61 (74) 97 03/06/17 10:27 99 21 03/06/17 08:00 97.9 81 16 135/79 (97) 97 I/O 03/06/17 03/06/17 03/06/17 03/07/17 03/07/17 03/07/17 07:00 15:00 23:00 07:00 15:00 23:00 Intake Total 460 ml 360 ml 360 ml Output Total 100 ml 50 ml Balance 360 ml -50 ml 360 ml 360 ml Intake Oral 360 ml 360 ml 360 ml IV Total 100 ml Output Drainage Total 100 ml 50 ml # Voids 2 4 3 # Bowel Movements 0 0 2 Result Diagram: 03/07/17 0559 Imaging Last 24 hours Impressions Knee X-Ray 03/05/17 0636 Signed Impressions: Service Date/Time: Sunday, March 05, 2017 10:06 - CONCLUSION: Status post total knee arthroplasty. Noe Hyatt MD Objective Remarks She is resting comfortably, supine in bed in the [facility]. The dressing is dry and intact. The neurovascular status is intact. Assessment & Plan Ortho Post Op Day #: 2 Problem List: (1) Status post total right knee replacement ICD Codes: Z96.651 - Presence of right artificial knee joint Plan: Continue postbox care and PT. Assessment and Plan Condition: Good. Orthopaedically stable. DVT prophylaxis: TEDs, sequentials, ASA. Discharge plans: Home with HHC, possibly SNF for rehab (lives alone on one floor ). Has appointment. Rx: [place] 7.5/325 Adrianne Restrepo MD ([place]) Mar 07, 2017 07:42
[2017-03-07 08:00] VITALS: BP 146/76; PULSE 90; RESP 18; TEMP 97.5; O2SAT 96
[2017-03-07] MEDS: metFORMIN HCL 500 MG TAB PO SCH (08:24)
[2017-03-07] MEDS: ESCITALOPRAM OXALATE 10 MG TAB PO SCH (08:24)
[2017-03-07] MEDS: ASPIRIN EC 81 MG TABEC PO SCH (08:24)
[2017-03-07] MEDS: ATORVASTATIN 10 MG TAB PO SCH (08:24)
[2017-03-07] MEDS: VALSARTAN 160 MG TAB PO SCH (08:24)
[2017-03-07] MEDS: DOCUSATE SODIUM 100 MG CAP PO SCH (08:24)
[2017-03-07] MEDS: INSULIN ASPART SUPPLEMENTAL SCALE SQ SCH ×2 (08:25→12:00)
[2017-03-07] MEDS: SODIUM CHLORIDE 0.9% FLUSH 5 ML FLUSH IVF SCH (08:31)
[2017-03-07] MEDS: LACTATED RINGER'S 1000 ML INJ 1,000 ML IV SCH (10:30)
[2017-03-07 11:50] VITALS: O2SAT 96
[2017-03-07 12:00] VITALS: BP 122/65; PULSE 87; RESP 18; TEMP 98.3; O2SAT 96
== END 2017-03-07 13:13 | DRG 470 ==
LOC: HSDI 05:05 → N06B 11:53
PROVIDERS: ADMIT Orthopaedic Surgery; ATTEND Orthopaedic Surgery
PROC: 3E0T3BZ Introduction of Anesthetic Agent into Peripheral Nerves and Plexi, Percutaneous Approach (ICD-10-PCS; 2017-03-05)
PROC: 0SRC0JA Replacement of Right Knee Joint with Synthetic Substitute, Uncemented, Open Approach (ICD-10-PCS; principal; 2017-03-05 06:37)
DX: M17.11 Unilateral primary osteoarthritis, right knee (principal); I10 Essential (primary) hypertension; E78.5 Hyperlipidemia, unspecified; E11.9 Type 2 diabetes mellitus without complications; E03.9 Hypothyroidism, unspecified; Z98.84 Bariatric surgery status; Z80.6 Family history of leukemia; Z82.49 Family history of ischemic heart disease and other diseases of the circulatory system; Z79.84 Long term (current) use of oral hypoglycemic drugs; Z23 Encounter for immunization
CPT/HCPCS: 73560; 82948; 85014; 85018; 86850; 86900; 86901; 90686; 94150; C1776; C9290; J0690; J1100; J1580; J1815; J1885; J2370; J2795; J7120; Q2038